=== PATIENT | female | born 1965 | race American Indian/Alaskan Native ===

== ENCOUNTER 2017-07-21 13:49 | Emergency (ER) | payer SELFPAY ==
[2017-07-21 15:43] LABS: Basophils % (Auto) 1.1 % (0.0-1.8); Eosinophils % (Auto) 1.1 % (0.0-4.3); Hematocrit 43.1 % (30.3-42.9); Mean Corpuscular HGB Conc 33 % (30-34); Mean Corpuscular Volume 79 fl (79-97); Platelet Count 298 K/mm3 (140-440); Red Blood Count 5.46 M/mm3 (3.65-5.03); Red Cell Distribution Width 14.9 % (13.2-15.2); White Blood Count 5.3 K/mm3 (4.5-11.0)
[2017-07-21 15:50] LABS: Mean Corpuscular Hemoglobin 26 pg (28-32)
[2017-07-21 15:55] LABS: INR 0.94 (0.87-1.13)
[2017-07-21 15:56] LABS: Partial Thromboplastin Time 29.7 Sec. (24.2-36.6)
[2017-07-21 16:04] LABS: Anion Gap 18 mmol/L; BUN/Creatinine Ratio 24; Blood Urea Nitrogen 12 mg/dL (7-17); Carbon Dioxide 29 mmol/L (22-30); Glucose 94 mg/dL (65-100); Potassium 4.5 mmol/L (3.6-5.0); Sodium 142 mmol/L (137-145)
--- NOTE | 2017-07-21 23:31 | Emergency Department Report ---
ED Chest Pain HPI - General Chief Complaint: Chest Pain Stated Complaint: CHEST PAIN, GOMEZ, AND HANDS NUMBNESS Time Seen by Provider: 07/21/17 23:23 Source: patient Mode of arrival: Ambulatory Limitations: No Limitations - History of Present Illness Initial Comments: Patient is a 52-year-old female with a past medical history of hypertension presents to emergency room with chest pain 2 days and a headache 1 week. Patient states she saw her primary care for this headache and is not being relieved by the medications given. Patient denies Shortness of breath. Patient states chest pain is worse with palpation of her chest wall. Patient states that the pain is worse with movement and better with rest. Patient denies fever. patient denies abdominal pain MD Complaint: chest pain -: Gradual, days(s) (chest pain for 2 days) Onset: during rest, during exertion Pain Location: left chest, right chest Pain Radiation: none Severity: severe Severity scale (0 -10): 9 Quality: heaviness, sharp Consistency: intermittent Improves With: medication-other, rest, remaining still Worsens With: palpation, movement Aspirin use within the Past 7 Days: (1) Yes - Related Data On Oral Contraceptives: No Home Medications Medication Instructions Recorded Confirmed Last Taken HYDROcodone/ACETAMINOPHEN [[place] 10 mg PO Q4HR 07/21/17 07/21/17 07/21/17 10-325 Tablet] Tizanidine HCl [Zanaflex] 4 mg PO BID 07/21/17 07/21/17 07/21/17 Zolpidem [Ambien] 10 mg PO HS 07/21/17 07/21/17 07/20/17 traMADol [Ultram 50 MG tab] 200 mg PO DAILY 07/21/17 07/21/17 07/20/17 Previous Rx's Medication Instructions Recorded Last Taken Type methylPREDNISolone [Medrol] 4 mg PO DAILY #1 tab.ds.pk 07/22/17 Unknown Rx Allergies Allergy/AdvReac Type Severity Reaction Status Date / Time No Known Allergies Allergy Unverified 07/21/17 14:32 Heart Score - HEART Score History: Slightly suspicious EKG: Normal Age: 45-65 Risk factors: No known risk factors Troponin: < normal limit HEART Score: 1 ED Review of Systems ROS: Stated complaint: CHEST PAIN, BACK AND HANDS NUMBNESS Other details as noted in HPI ED Past Medical Hx - Past Medical History Previous Medical History?: Yes Hx Hypertension: Yes (stop taking medication 5 years ago per doctors orders) - Surgical History Past Surgical History?: No - Social History Smoking Status: Never Smoker Substance Use Type: None - Medications Home Medications: Home Medications Medication Instructions Recorded Confirmed Last Taken Type HYDROcodone/ACETAMINOPHEN [[place] 10 mg PO Q4HR 07/21/17 07/21/17 07/21/17 History 10-325 Tablet] Tizanidine HCl [Zanaflex] 4 mg PO BID 07/21/17 07/21/17 07/21/17 History Zolpidem [Ambien] 10 mg PO HS 07/21/17 07/21/17 07/20/17 History traMADol [Ultram 50 MG tab] 200 mg PO DAILY 07/21/17 07/21/17 07/20/17 History methylPREDNISolone [Medrol] 4 mg PO DAILY #1 tab.ds.pk 07/22/17 Unknown Rx ED Physical Exam - General Limitations: No Limitations General appearance: alert, in no apparent distress - Head Head exam: Present: atraumatic, normocephalic - Eye Eye exam: Present: normal appearance - ENT ENT exam: Present: mucous membranes moist - Neck Neck exam: Present: normal inspection - Respiratory Respiratory exam: Present: normal lung sounds bilaterally. Absent: respiratory distress - Cardiovascular Cardiovascular Exam: Present: regular rate, normal rhythm. Absent: systolic murmur, diastolic murmur, rubs, gallop - GI/Abdominal GI/Abdominal exam: Present: soft, normal bowel sounds - Extremities Exam Extremities exam: Present: normal inspection - Back Exam Back exam: Present: normal inspection - Neurological Exam Neurological exam: Present: alert, oriented X3, CN II-XII intact, normal gait, motor sensory deficit, reflexes normal (chest pain is reproduced with palpation of the chest wall. Chest wall tenderness noted) - Psychiatric Psychiatric exam: Present: normal affect, normal mood - Skin Skin exam: Present: warm, dry, intact, normal color. Absent: rash - Other Other exam information: Tenderness to palpation of bilateral superior chest and reproduce symptoms ED Course Vital Signs 07/21/17 07/21/17 14:33 22:25 Temperature 98.4 F 98.3 F Pulse Rate 75 88 Respiratory 16 14 Rate Blood Pressure 141/97 Blood Pressure 160/100 [Left] O2 Sat by Pulse 100 98 Oximetry GAYATHRI score - Gayathri Score Age > 65: (0) No Aspirin use within the Past 7 Days: (1) Yes 3 or more CAD Risk Factors: (0) No 2 or more Angina events in past 24 hrs: (0) No Known CAD with more than 50% Stenosis: (0) No Elevated Cardiac Markers: (0) No ST Deviation Greater than 0.5mm: (0) No GAYATHRI Score: 1 ED Medical Decision Making - Lab Data Result diagrams: 07/21/17 15:07 07/21/17 15:07 - EKG Data -: EKG Interpreted by Me EKG shows normal: sinus rhythm Rate: normal - EKG Data When compared to previous EKG there are: no significant change Interpretation: no acute changes, normal EKG - Radiology Data Radiology results: report reviewed (CT head negative. ) - Medical Decision Making Patient has had 3 sets of negative cardiac enzymes and EKGs. Head CT negative. Patient stable for discharge. Patient will need to see a neurologist security clerk and primary care for further evaluation and follow-up care - Differential Diagnosis cp, gomez. stress. Critical care attestation.: If time is entered above; I have spent that time in minutes in the direct care of this critically ill patient, excluding procedure time. ED Disposition Clinical Impression: Chest pain, Costochondritis, Headache Disposition: DC- TO HOME OR SELFCARE Is pt being admited?: No Does the pt Need Aspirin: No Condition: Stable Instructions: Chest Pain (ED), Costochondritis (ED), Tension Headache (ED) Additional Instructions: Patient follow with security clerk, neurologist and primary care within 3-5 days. Patient take medicines as directed patient to take Tylenol or ibuprofen when necessary pain. Patient to increase water. Patient to follow-up ER if condition worsens Prescriptions: methylPREDNISolone [Medrol] 4 mg PO DAILY #1 tab.ds.pk Referrals: PRIMARY CARE, [Primary Care Provider] - 3-5 Days Time of Disposition: 01:25
--- NOTE | 2017-07-22 00:34 | Cat Scan Report ---
FINAL REPORT EXAM: CT HEAD/BRAIN WO/W CON HISTORY: gallo TECHNIQUE: Pre and post IV contrast imaging was obtained of the brain with images reviewed on brain and bone settings. The patient was injected with 100 cc of Omnipaque 300 intravenously. FINDINGS: There are no attenuation abnormalities. The ventricular system is appropriate in size and is symmetric. The basal cisterns appear normal. The postcontrast images do not show any abnormal areas of enhancement. The visualized sinuses are clear. The mastoid air cells are well pneumatized. The calvarium appears intact. IMPRESSION: Within normal limits.
[2017-07-22 01:49] VITALS: BP 160/109
== END 2017-07-22 01:48 | disposition home or self-care (01) ==
LOC: ED 13:49
DX: M94.0 Chondrocostal junction syndrome [Tietze] (principal); R51 Headache; I10 Essential (primary) hypertension
CPT/HCPCS: 36415; 70470; 80048; 84484; 85025; 85610; 85730; 93005; 93010; 96372; 99284; J2930; Q9967